=== PATIENT | female | born 1975 | race African-American/Black ===

== ENCOUNTER 2025-01-08 20:57 | Emergency (ER) | payer SELFPAY ==
[2025-01-09 16:06] LABS: MONO NEGATIVE CONTROL ZONE White (Negative) (White); MONO POSITIVE CONTROL Pink Line (Positive) (PINK/RED); Mononucleosis NEGATIVE (NEGATIVE)
== END 2025-01-08 22:14 | disposition home or self-care (01) ==
LOC: NAV ERS 20:57
DX: J03.90 Acute tonsillitis, unspecified (principal); B34.9 Viral infection, unspecified; E11.9 Type 2 diabetes mellitus without complications; E66.9 Obesity, unspecified
CPT/HCPCS: 36415; 86308; 87081; 87426; 87430; 99283